=== PATIENT | female | born 1945 | race Caucasian/White ===

== ENCOUNTER 2017-12-04 12:54 | Emergency (ER) | payer BC ==
--- OUTSIDE RECORDS SUMMARY | 2017-12-04 14:01 | XMS REPORT ---
:1945 External Reference #:[id number] [facility] Address [address] [place] [address] Phone [phone] Care Team Providers Name Role Phone Johanna Sethi M.D. Primary Care Physician Unavailable Payers Type Date Identification Numbers Payment Provider Subscriber Commercial Policy Number: [id number] BS [employer] [employer] Carine Bentley PayID: [id number] [address] [address] [place] [address] Commercial Expires: Policy Number: [employer] Ppo/Pos/Epo/Nap Carine Barker 2013 [id number] [employer] Group Number: [id number] [address] PayID: [id number] [place] [address] Problems Date Description Provider Status Onset: Hypothyroidism Active Onset: Essential hypertension Active Onset: Osteopenia Active Onset: Arthritis Active Onset: Sleep apnea Active Onset: Depressive disorder Active Onset: Anxiety Active Onset: Vitamin D deficiency Active Onset: 11/28/2014 Presbyopia Corinne Gill O.D. Active Onset: 11/28/2014 Myopia Corinne Gill O.D. Active Onset: 11/28/2014 Tear film insufficiency Corinne Gill O.D. Active Onset: 11/28/2014 Pseudophakia Corinne Gill O.D. Active Onset: 11/28/2014 Open angle with borderline findings Corinne Gill O.D. Active Onset: 06/08/2016 Epiretinal membrane Corinne Gill O.D. Active Onset: 06/08/2016 Regular astigmatism Corinne Gill O.D. Active Onset: 06/08/2016 Exophthalmos Corinne Gill O.D. Active Onset: 06/08/2016 Pseudophakia Corinne Gill O.D. Active Onset: 06/08/2016 Open-angle glaucoma - borderline Corinne Gill O.D. Active Onset: 09/17/2016 Benign neoplasm of eyelid including Corinne Gill O.D. Active canthus Onset: 05/07/2017 Vitreous degeneration Corinne Gill O.D. Active Family History Date Family Member(s) Problem(s) Comments General Cataract Father Cataract none Mother Cataract First Brother Cataract Social History Type Date Description Comments Marital Status Legal Status: Occupation [employer] in [employer] Work Status Full-Time Employment ETOH Use Rarely consumes alcohol Smoking Patient is a former smoker Recreational Drug Use Denies Drug Use Daily Caffeine Consumes on average 1 cup of regular coffee per day Allergies, Adverse Reactions, Alerts Date Description Reaction Status Severity Comments 11/27/2014 Codeine active 11/27/2014 Sulfa Antibiotics active Medications Medication Date Status Form Strength Qnty SIG Indications Ordering Provider Systane Ultra 11/27/ Active Solution 0.4-0.3% 1 drop Corinne DiorHia 2014 both Jairo, eyes O.D. every day Vitamin D / Active Capsules [id number] Blegen, (Ergocalciferol) 0000 Johanna Boston Duloxetine HCL / Active Caps DR 60mg Blegen, 0000 Part Johanna Boston Levothyroxine / Active Tablets 100mcg Blegen, Sodium 0000 Johanna Boston Eplerenone / Active Tablets 25mg Mauser, 0000 MD Anthony B-12 / Active Inj Unknown 0000 Erythromycin 09/17/ Hx Ointment 5mg/GM 1Tubes apply D23.12 Corinne Aldrich 2016 - thin Jairo, 05/05/ strip to O.D. 2017 left eyelid before bed for 5 days Results Description No Information Procedures Date CPT Code Description Status 07/09/2017 60485 Patient No Show For Appt Completed 05/07/2017 35927 Determination Of Refractive State Completed 05/07/2017 68363 Est Patient Comprehensive Exam Completed 06/08/2016 84931 Scanning Computerized Ophthalmic Diagnostic Imag Completed Posterior Seg On 06/08/2016 71313 Determination Of Refractive State Completed 06/08/2016 83870 Est Patient Comprehensive Exam Completed 11/28/2014 47254 Est Patient Intermediate Exam Completed 03/19/2014 70494 Est Patient Comprehensive Exam Completed 09/27/2013 14164 Est Patient Comprehensive Exam Completed 08/09/2012 62123 Scanning Computerized Ophthalmic Diagnostic Imag Completed Posterior Seg On 08/09/2012 74193 Est Patient Comprehensive Exam Completed 08/26/2011 66647 Remove Secondary Cataract, Laser (Yag) Completed 08/18/2011 48912 New Patient Comprehensive Exam Completed Encounters Type Date Location Provider CPT E/M Dx Office Visit 09/17/2016 6:15p Giovani Paez MD, Corinne Gill O.D. [id number] D23.12 pc H40.013 Office Visit 08/18/2012 2:00p Giovani Paez MD, Ed Tucker M.D. 23929 362.54 pc Plan of Care 11/10/2017 - Corinne Gill O.D.H40.013 Open angle with borderline findings, low risk, bilateralComments:Dr. Gill is considering you a Glaucoma suspect. This means the eye pressure in your eyes are higher than average, your optic nerve appearance is suspicious, or you have strong risk factors; but you have not been diagnosed with Glaucoma. Follow up appointments are very important to keep.Follow up:3 months VF 24-2 IOP rihfoJ46.813 Vitreous degeneration, bilateralComments:You have a Posterior Vitreous Detachment. If you have any changes in your floaters or flashing lights, please contact this office.H04.123 Dry eye syndrome of bilateral lacrimal glandsComments:Both of your eyes appear to be dry. Use artificial tears as directed. You can use the tears more often if you are reading a book or are on the computer, as we tend to blink less, making our eyes dry out more.[facility] offers a few items in our optical department to help alleviate dry eye symptoms.Z96.1 Presence of intraocular lensComments:Smoking can increase the risk of developing or worsening any eye related disease, as well as affect your overall health. If you are a smoker, we strongly recommend that you quit.If you are not a smoker, we strongly recommend that you do not start. The artificial lens implants in both eyes appear to be stable at this time.
[2017-12-04] MEDS ORDERED: Ibuprofen TAB* 600 MG PO ONE ×2 (14:48→20:14)
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
[2017-12-04 18:17] LABS: ABS Basophils 0.1 10^3/ul (0-0.2); ABS Eosinophils 0.2 10^3/ul (0-0.6); ABS Monocytes 0.7 10^3/ul (0-0.8); ABS Neutrophils 6.7 10^3/ul (1.5-7.7); ABS Nucleated RBC 0 10^3/ul; Eosinophil % 2.1 % (0-6); Hematocrit 38 % (35-47); Hemoglobin 12.8 g/dl (12.0-16.0); Lymphocyte % 28.2 % (25-47); Mean Corpuscular HGB Conc 34 g/dl (31-36); Mean Corpuscular Hemoglobin 30 pg (27-31); Mean Corpuscular Volume 90 fL (80-97); Mean Platelet Volume 9.2 um3 (7.4-10.4); Nucleated Red Blood Cells % 0; Platelet Count 249 10^3/ul (150-450); Red Blood Count 4.22 10^6/ul (4.00-5.40); Red Cell Distribution Width 13 % (10.5-15); White Blood Count 10.7 10^3/ul (3.5-10.8)
[2017-12-04] MEDS ORDERED: Iohexol 300* (CONTRAST) 10 ML SDV IV ONE (18:39)
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
[2017-12-04 20:55] VITALS: BP 175/92
== END 2017-12-04 20:50 | disposition home or self-care (01) ==
LOC: ED 12:54
DX: S80.212A Abrasion, left knee, initial encounter (principal); S80.211A Abrasion, right knee, initial encounter; S22.32XA Fracture of one rib, left side, initial encounter for closed fracture; V18.0XXA Pedal cycle driver injured in noncollision transport accident in nontraffic accident, initial encounter; Y93.55 Activity, bike riding; Y92.9 Unspecified place or not applicable; Z88.5 Allergy status to narcotic agent; Z88.2 Allergy status to sulfonamides
CPT/HCPCS: 36415; 70450; 71260; 74177; 80053; 85025; 99283; A9270-GY; Q9967

== ENCOUNTER 2018-06-29 05:35 | Emergency (ER) | payer BC ==
[2018-06-29] MEDS ORDERED: Ondansetron INJ* 2 MG/ML VIAL IV ONE (06:06)
[2018-06-29] MEDS ORDERED: NS 0.9% 1000 ML** 1,000 ML IV ONE (06:17)
--- NOTE | 2018-06-29 06:25 | ED ---
Nausea/Vomiting/Diarrhea HPI - HPI Summary HPI Summary: Patient is a 73-year-old female presenting to the ED with nausea, vomiting, abdominal bloating and feeling early satiety x 2 days. Denies fevers, sweats or chills. Endorses 2 BM on Wednesday, but none today. No hx of obstruction. Hx of gallstones, hypothyroid, fatty liver and depression. States she was able to eat toast yesterday, but every time she tries to drink liquids, she vomits. Emesis x 6-7 times over the past 2 days. Denies urinary symptoms, back pain. Endorses sick contacts (flu) as of last week. - History of Current Complaint Chief Complaint: EDNauseaVomitDiarrh Stated Complaint: GENERAL ILLNESS Time Seen by Provider: 06/29/18 05:44 Hx Obtained From: Patient ?: No Onset/Duration: Sudden Onset Timing: Constant Severity Initially: Moderate Severity Currently: Moderate Pain Intensity: 0 Pain Scale Used: 0-10 Numeric Character: Cramping - only with emesis Aggravating Factor(s): Other: - fluids Alleviating Factor(s): Nothing Vomiting Frequency: Every 1-2 hours Nausea/Vomiting Duration: 24-36 hours Vomiting Characteristics: Retching Diarrhea Presence: No - Risk Factors Influenza Risk Factors: Age 65 y/o or Older - Allergies/Home Medications Allergies/Adverse Reactions: Allergies Allergy/AdvReac Type Severity Reaction Status Date / Time MS Sulfa Antibiotics Allergy Unknown Hives Verified 09/02/16 15:43 [Sulfa Antibiotics] MS Codeine [Codeine] AdvReac Unknown Hallucinati Verified 09/02/16 15:43 ons PMH/Surg Hx/FS Hx/Imm Hx Previously Healthy: Yes Endocrine/Hematology History: Reports: Hx Thyroid Disease Denies: Hx Anticoagulant Therapy, Hx Diabetes Cardiovascular History: Reports: Hx Hypertension Respiratory History: Denies: Hx Asthma, Hx Chronic Obstructive Pulmonary Disease (COPD) GI History: Denies: Hx Ulcer History: Denies: Hx Dialysis Musculoskeletal History: Reports: Hx Osteoporosis Neurological History: Denies: Hx CVA Psychiatric History: Reports: Hx Depression - Cancer History Hx Chemotherapy: Yes Hx Radiation Therapy: Yes - Surgical History Surgery Procedure, Year, and Place: hysterectomy. breast lumpectomy Infectious Disease History: No Infectious Disease History: Denies: Hx Hepatitis, Hx Human Immunodeficiency Virus (HIV), Traveled Outside the [place] in Last 30 Days - Family History Known Family History: Positive: Hypertension - Social History Occupation: Unemployed Lives: With Family Alcohol Use: Rare Hx Substance Use: No Substance Use Type: Reports: None Hx Tobacco Use: No Smoking Status (MU): Never Smoked Tobacco Review of Systems Constitutional: Negative Negative: Fever, Chills, Fatigue, Skin Diaphoresis Negative: Palpitations, Chest Pain Negative: Shortness Of Breath, Cough Positive: Abdominal Pain, Vomiting, Nausea. Negative: Diarrhea Genitourinary: Negative Positive: no symptoms reported, see HPI Positive: Myalgia - diffuse. Negative: Arthralgia Skin: Negative Neurological: Negative All Other Systems Reviewed And Are Negative: Yes Physical Exam Triage Information Reviewed: Yes Vital Signs On Initial Exam: Initial Vitals Temp Pulse Resp BP Pulse Ox 98.6 F 67 18 155/80 0 06/29/18 05:44 06/29/18 05:44 06/29/18 05:44 06/29/18 05:44 06/29/18 05:44 Vital Signs Reviewed: Yes Appearance: Positive: Ill-Appearing Skin: Positive: Skin Color Reflects Adequate Perfusion, Dry Head/Face: Positive: Normal Head/Face Inspection Eyes: Positive: EOMI, TONI Neck: Positive: No Lymphadenopathy Respiratory/Lung Sounds: Positive: Clear to Auscultation, Breath Sounds Present Cardiovascular: Positive: RRR, Pulses are Symmetrical in both Upper and Lower Extremities Abdomen Description: Positive: Nontender, Soft Bowel Sounds: Positive: Present Musculoskeletal: Positive: Normal, Strength/ROM Intact Neurological: Positive: Alert, Oriented to Person Place, Time, Speech Normal Psychiatric: Positive: Affect/Mood Appropriate Diagnostics - Vital Signs Vital Signs Temp Pulse Resp BP Pulse Ox 06/29/18 05:44 98.6 F 67 18 155/80 0 - Laboratory Result Diagrams: 06/29/18 07:07 06/29/18 07:07 Lab Statement: Any lab studies that have been ordered have been reviewed, and results considered in the medical decision making process. Re-Evaluation - Re-Evaluation First Eval Re-Evaluation Time: 07:20 Change: Worse - patient begins to feel chest pains at 7am, ekg was performed immediately - read as normal sinus rhythm aidh rate of 64. Second Eval Re-Evaluation Time: 08:00 Change: Improved - patient continues to have nausea, but denies any chest pain - maalox given Naus/Vom/Diarrhea Course/Dx - Course Course Of Treatment: During the course of treatment, the patient is evaluated for nausea, vomiting, mid abdominal pain which is intermittent. She endorses 2 bowel movements yesterday, but none today. History of constipation. She states she has not been burping or passing gas over the past 2 days and is concerned over an obstruction. She has never had an SBO in the past. She states she has been able to keep toast down yesterday, but denies keeping any fluids down. She endorses sick contacts, flu, as of 2 days ago. Endorses some body aches, but denies any fevers, sweats, chills. During her course, she is given 4 mg Zofran IV and Maalox plus. She is also given [address] L fluids. Labs obtained. CT abdomen and pelvis obtained. Flu swab obtained. UA obtained. CT abdomen and pelvis shows no acute pathology. Gallstones noted within the gallbladder. There is a moderate-sized hiatal hernia noted. Discussed findings with patient. She will follow-up with her PCP regarding hernia and gallstones. On reexamination, patient is feeling much improved with Zofran, Maalox and normal saline. She'll be discharged home with prescription for Zofran. She is asymptomatic on discharge. - Differential Dx/Diagnosis Provider Diagnosis: Nausea & vomiting Condition At Discharge: Stable Discharge - Sign-Out/Discharge Documenting (check all that apply): Patient Departure Patient Received Moderate/Deep Sedation with Procedure: No - Discharge Plan Condition: Stable Disposition: HOME Prescriptions: Ondansetron ODT TAB* [Zofran 4 MG Odt TAB*] 4 mg PO Q6H PRN #12 tab.odt MDD 4 PRN Reason: Nausea Patient Education Materials: Acute Nausea and Vomiting (ED) Referrals: Johanna Sethi MD [Primary Care Provider] - Additional Instructions: Drink plenty of fluids including Gatorade E chicken noodle soup, rice, toast, applesauce, bananas Do not eat anything spicy right now until your stomach settles down Zofran up to 4 times daily as needed for nausea If you continue to develop worsening or changing symptoms, return to the ED or follow-up with her PCP - Billing Disposition and Condition Condition: STABLE Disposition: Home
[2018-06-29] MEDS ORDERED: Al Hydrox/Mg Hydrox/Simet LIQ* 30 ML UDC PO ONE (06:27)
[2018-06-29 07:13] LABS: ABS Basophils 0.1 10^3/ul (0-0.2); ABS Eosinophils 0.1 10^3/ul (0-0.6); ABS Lymphocytes 1.6 10^3/ul (1.0-4.8); ABS Monocytes 0.5 10^3/ul (0-0.8); ABS Neutrophils 6.4 10^3/ul (1.5-7.7); ABS Nucleated RBC 0 10^3/ul; Eosinophil % 1.3 %; Hematocrit 39 % (35-47); Hemoglobin 12.9 g/dl (12.0-16.0); Lymphocyte % 18.8 %; Mean Corpuscular HGB Conc 34 g/dl (31-36); Mean Corpuscular Hemoglobin 30 pg (27-31); Mean Corpuscular Volume 90 fL (80-97); Mean Platelet Volume 8.7 fL (7.4-10.4); Nucleated Red Blood Cells % 0; Platelet Count 219 10^3/ul (150-450); Red Blood Count 4.29 10^6/ul (4.00-5.40); Red Cell Distribution Width 13 % (10.5-15); White Blood Count 8.7 10^3/ul (3.5-10.8)
[2018-06-29 07:31] LABS: Albumin 4.2 g/dL (3.2-5.2); Albumin/Globulin Ratio 1.4 (1-3); BUN/Creatinine Ratio 27.1 (8-20); C Reactive Protein 4.11 mg/L (<8.01); Calcium 9.4 mg/dL (8.6-10.3); EGFR African American 99.5 (>60); EGFR Non-African American 82.3 (>60); Potassium 4.1 mmol/L (3.5-5.0); Total Bilirubin 0.4 mg/dL (0.2-1.0); Total Protein 7.2 g/dL (6.4-8.9)
[2018-06-29 07:37] LABS: Influenza A Molecular NEGATIVE (Negative); Influenza B Molecular NEGATIVE (Negative)
[2018-06-29 09:38] VITALS: BP 125/76
== END 2018-06-29 09:38 | disposition home or self-care (01) ==
LOC: ED 05:35
DX: R11.2 Nausea with vomiting, unspecified (principal); K80.80 Other cholelithiasis without obstruction; K44.9 Diaphragmatic hernia without obstruction or gangrene; M79.10 Myalgia, unspecified site; Z88.5 Allergy status to narcotic agent; Z88.2 Allergy status to sulfonamides
CPT/HCPCS: 36415; 74176; 80053; 83605; 83690; 83735; 85025; 86140; 93005; 96374; 99283; A9270-GY; J2405

== ENCOUNTER 2018-06-30 05:29 | Emergency (ER) | payer BC ==
[2018-06-30] MEDS ORDERED: Al Hydrox/Mg Hydrox/Simet LIQ* 30 ML UDC PO ONE (05:57)
[2018-06-30] MEDS ORDERED: Metoclopramide IV* 5 MG/ML 2 ML VIAL IV ONE (05:58)
[2018-06-30] MEDS ORDERED: Ondansetron INJ* 2 MG/ML VIAL IV ONE (05:58)
[2018-06-30] MEDS: NS 0.9% 1000 ML** 2,000 ML IV ONE ×2 (06:04→06:05)
[2018-06-30 06:21] LABS: ABS Basophils 0.1 10^3/ul (0-0.2); ABS Eosinophils 0.1 10^3/ul (0-0.6); ABS Monocytes 0.7 10^3/ul (0-0.8); ABS Neutrophils 7.7 10^3/ul (1.5-7.7); ABS Nucleated RBC 0 10^3/ul; Eosinophil % 0.6 %; Hematocrit 37 % (35-47); Hemoglobin 12.7 g/dl (12.0-16.0); Lymphocyte % 19.2 %; Mean Corpuscular HGB Conc 34 g/dl (31-36); Mean Corpuscular Hemoglobin 31 pg (27-31); Mean Corpuscular Volume 90 fL (80-97); Mean Platelet Volume 8.9 fL (7.4-10.4); Nucleated Red Blood Cells % 0; Platelet Count 235 10^3/ul (150-450); Red Blood Count 4.18 10^6/ul (4.00-5.40); Red Cell Distribution Width 13 % (10.5-15); White Blood Count 10.5 10^3/ul (3.5-10.8)
[2018-06-30] MEDS ORDERED: Famotidine IV* 10 MG/ML 2 ML (20 mg) IV SLOW PU ONE (06:35)
[2018-06-30] MEDS ORDERED: Morphine VIAL* 10 MG/ML 1 ML VIAL IV ONE (06:35)
[2018-06-30 06:52] LABS: Albumin 4.1 g/dL (3.2-5.2); Albumin/Globulin Ratio 1.4 (1-3); BUN/Creatinine Ratio 34.8 (8-20); C Reactive Protein 5.21 mg/L (<8.01); EGFR African American 106.5 (>60); Globulin 2.9 g/dL (2-4); Magnesium 2.4 mg/dL (1.9-2.7); Total Bilirubin 0.4 mg/dL (0.2-1.0)
[2018-06-30 09:13] LABS: Urine Appearance Clear; Urine Bacteria Absent (Absent); Urine Bilirubin Negative (Negative); Urine Blood Negative (Negative); Urine Color Yellow; Urine Glucose Negative (Negative); Urine Ketones Negative (Negative); Urine Nitrite Negative (Negative); Urine Protein Negative (Negative); Urine Red Blood Cell Absent (Absent); Urine Specific Gravity 1.011 (1.010-1.030); Urine Squamous Epithelial Cell Present (Absent); Urine Urobilinogen Negative (Negative); Urine White Blood Cell Trace(0-5/hpf) (Absent)
--- NOTE | 2018-06-30 09:13 | ED ---
Nausea/Vomiting/Diarrhea HPI - HPI Summary HPI Summary: Patient is a 73-year-old female presenting to the ED with nausea vomiting and abdominal cramping. She was seen in the ED yesterday for same. Yesterday, she was given Zofran and famotidine as well as Maalox with good relief. She was asymptomatic upon discharge. Her vital signs are stable at the time. She returns today with 3 more episodes of vomiting despite her prescription of Zofran for at home. She continues to endorse mid lower abdominal cramping which is been intermittent associated with nausea, vomiting. Denies any constipation or diarrhea. She states she still is unable to keep anything down and has not eaten. She states she is dehydrated. Continues to state she denies any fevers, sweats, chills. She denies any urinary symptoms or back pain. Denies any cough or congestion. Denies any chest pain. She does endorse an acid feeling in her throat after vomiting, which dissipated after taking Mylanta. - History of Current Complaint Chief Complaint: EDNauseaVomitDiarrh Stated Complaint: VOMITING/NAUSEA Time Seen by Provider: 06/30/18 05:42 Hx Obtained From: Patient ?: No Onset/Duration: Sudden Onset Timing: Constant Severity Initially: Mild Severity Currently: Mild Pain Intensity: 0 Pain Scale Used: 0-10 Numeric Location: Epigastric Character: Burning Aggravating Factor(s): Nothing Alleviating Factor(s): Nothing Vomiting Frequency: Every 3-4 hours Nausea/Vomiting Duration: 12-24 hours Diarrhea Presence: No - Risk Factors Influenza Risk Factors: Negative Surgical Obstruction Risk Factor(s): Negative - Allergies/Home Medications Allergies/Adverse Reactions: Allergies Allergy/AdvReac Type Severity Reaction Status Date / Time codeine Allergy Hallucinati Verified 06/30/18 06:17 ons Sulfa (Sulfonamide Allergy Hives Verified 06/30/18 06:17 Antibiotics) Home Medications: Home Medications Cyanocobalamin INJ * [Vitamin B12 INJ *] 1,000 mcg IM MONTHLY 06/30/18 [History Confirmed 06/30/18] PMH/Surg Hx/FS Hx/Imm Hx Previously Healthy: Yes - white count was high Endocrine/Hematology History: Reports: Hx Thyroid Disease Denies: Hx Anticoagulant Therapy, Hx Diabetes Cardiovascular History: Reports: Hx Hypertension Respiratory History: Denies: Hx Asthma, Hx Chronic Obstructive Pulmonary Disease (COPD) GI History: Denies: Hx Ulcer History: Denies: Hx Dialysis Musculoskeletal History: Reports: Hx Osteoporosis Neurological History: Denies: Hx CVA Psychiatric History: Reports: Hx Depression - Cancer History Hx Chemotherapy: Yes Hx Radiation Therapy: Yes - Surgical History Surgery Procedure, Year, and Place: hysterectomy. breast lumpectomy - Immunization History Hx Pertussis Vaccination: No Immunizations Up to Date: Yes Infectious Disease History: No Infectious Disease History: Denies: Hx Hepatitis, Hx Human Immunodeficiency Virus (HIV), Traveled Outside the [place] in Last 30 Days - Family History Known Family History: Positive: Hypertension - Social History Occupation: Unemployed Alcohol Use: Rare Hx Substance Use: No Substance Use Type: Reports: None Hx Tobacco Use: No Smoking Status (MU): Never Smoked Tobacco Review of Systems Negative: Fever, Chills, Fatigue, Skin Diaphoresis Negative: Palpitations, Chest Pain Negative: Shortness Of Breath, Cough Positive: Abdominal Pain, Vomiting, Nausea. Negative: Diarrhea Genitourinary: Negative Positive: no symptoms reported, see HPI Negative: Arthralgia Skin: Negative Neurological: Negative All Other Systems Reviewed And Are Negative: Yes Physical Exam Triage Information Reviewed: Yes Vital Signs On Initial Exam: Initial Vitals Temp Pulse Resp BP Pulse Ox 97.6 F 73 19 139/76 96 06/30/18 05:30 06/30/18 05:30 06/30/18 05:30 06/30/18 05:30 06/30/18 05:30 Vital Signs Reviewed: Yes Appearance: Positive: Well-Nourished, Ill-Appearing Skin: Positive: Warm, Skin Color Reflects Adequate Perfusion, Dry Head/Face: Positive: Normal Head/Face Inspection Eyes: Positive: Normal, EOMI, TONI, Conjunctiva Clear Neck: Positive: Supple, Nontender, No Lymphadenopathy Cardiovascular: Positive: RRR, Pulses are Symmetrical in both Upper and Lower Extremities Abdomen Description: Positive: Nontender, Soft Musculoskeletal: Positive: Normal, Strength/ROM Intact Neurological: Positive: Sensory/Motor Intact, Alert, Oriented to Person Place, Time, Speech Normal Psychiatric: Positive: Normal, Affect/Mood Appropriate AVPU Assessment: Alert Diagnostics - Vital Signs Vital Signs Temp Pulse Resp BP Pulse Ox 06/30/18 08:45 113/68 06/30/18 08:41 79 95 06/30/18 08:15 106/56 06/30/18 07:45 72 110/55 95 06/30/18 07:37 69 94 06/30/18 07:15 111/63 06/30/18 06:45 129/90 06/30/18 06:41 22 06/30/18 06:15 68 06/30/18 05:30 97.6 F 73 19 139/76 96 - Laboratory Lab Results: Lab Results 06/30/18 06/30/18 06/30/18 Range/Units 06:13 06:13 06:13 WBC 10.5 (3.5-10.8) 10^3/ul RBC 4.18 (4.00-5.40) 10^6/ul Hgb 12.7 (12.0-16.0) g/dl Hct 37 (35-47) % MCV 90 (80-97) fL MCH 31 (27-31) pg MCHC 34 (31-36) g/dl RDW 13 (10.5-15) % Plt Count 235 (150-450) 10^3/ul MPV 8.9 (7.4-10.4) fL Neut % (Auto) 72.9 % Lymph % (Auto) 19.2 % Mclennan % (Auto) 6.3 % Eos % (Auto) 0.6 % Baso % (Auto) 1.0 % Absolute Neuts (auto) 7.7 (1.5-7.7) 10^3/ul Absolute Lymphs (auto) 2.0 (1.0-4.8) 10^3/ul Absolute Monos (auto) 0.7 (0-0.8) 10^3/ul Absolute Eos (auto) 0.1 (0-0.6) 10^3/ul Absolute Basos (auto) 0.1 (0-0.2) 10^3/ul Absolute Nucleated RBC 0 10^3/ul Nucleated RBC % 0 Sodium 138 (135-145) mmol/L Potassium 4.0 (3.5-5.0) mmol/L Chloride 107 (101-111) mmol/L Carbon Dioxide 25 (22-32) mmol/L Anion Gap 6 (2-11) mmol/L BUN 23 (6-24) mg/dL Creatinine 0.66 (0.51-0.95) mg/dL Est GFR ( Amer) 106.5 (>60) Est GFR (Non-Af Amer) 88.0 (>60) BUN/Creatinine Ratio 34.8 H (8-20) Glucose 120 H (70-100) mg/dL Lactic Acid 0.9 (0.5-2.0) mmol/L Calcium 9.0 (8.6-10.3) mg/dL Magnesium 2.4 (1.9-2.7) mg/dL Total Bilirubin 0.40 (0.2-1.0) mg/dL AST 18 (13-39) U/L ALT 28 (7-52) U/L Alkaline Phosphatase 84 (34-104) U/L C-Reactive Protein 5.21 (<8.01) mg/L Total Protein 7.0 (6.4-8.9) g/dL Albumin 4.1 (3.2-5.2) g/dL Globulin 2.9 (2-4) g/dL Albumin/Globulin Ratio 1.4 (1-3) Lipase 51 (11.0-82.0) U/L Result Diagrams: 06/30/18 06:13 06/30/18 06:13 Lab Statement: Any lab studies that have been ordered have been reviewed, and results considered in the medical decision making process. Naus/Vom/Diarrhea Course/Dx - Course Course Of Treatment: Patient was seen for same yesterday in the ED and was discharged home with Zofran as she was asymptomatic. She returns today with continuing symptoms despite her at home Zofran medication, however she states "it has helped." UA negative.During the ED course she is given 2 L fluids, Reglan, famotidine, Maalox. Again, this improves her symptoms and at this time she is asymptomatic. She is given ice chips, followed by water, followed by apple sauce and continued to be asymptomatic and denied any nausea. She will be given Reglan in addition to her at home Zofran for her nausea symptoms. We will not at this time repeat CT as yesterday CT abdomen/pelvis was negative for any acute findings, except for persistent and chronic gallstones. She does have a moderate-sized hiatal hernia which could be contributory to her GERD- like symptoms, however she will follow-up as an outpatient for this. Patient has an appointment this afternoon with her PCP. She is asymptomatic on discharge. - Differential Dx/Diagnosis Provider Diagnosis: Nausea & vomiting Is Visit Related: No Condition At Discharge: Stable Discharge - Sign-Out/Discharge Documenting (check all that apply): Patient Departure Patient Received Moderate/Deep Sedation with Procedure: No - Discharge Plan Condition: Stable Disposition: HOME Prescriptions: Metoclopramide TAB* [Reglan TAB*] 10 mg PO Q6H #12 tab Referrals: Johanna Sethi MD [Primary Care Provider] - Additional Instructions: Follow up with your PCP today as scheduled Reglan up to every 6 hours as needed for nausea/vomiting You may also take the zofran if reglan fails to improve your symptoms - Billing Disposition and Condition Condition: STABLE Disposition: Home
[2018-06-30 10:24] VITALS: BP 118/68
== END 2018-06-30 10:26 | disposition home or self-care (01) ==
LOC: ED 05:29
DX: R11.2 Nausea with vomiting, unspecified (principal); Z88.5 Allergy status to narcotic agent; Z88.2 Allergy status to sulfonamides
CPT/HCPCS: 36415; 80053; 81003; 81015; 83605; 83690; 83735; 85025; 86140; 87086; 96361; 96374; 96375; 99283; A9270-GY; J2270; J2405; J2765